=== PATIENT | male | born 1930 | race African-American/Black ===

== ENCOUNTER → 2019-12-11 | Emergency (ER) | payer OTHER ==
[~2019-12-11] VITALS: Ht 172.7 cm; Wt 70.3 kg
[~2019-12-11] MED LIST: SODIUM CHLORIDE 0.9% 1,000 ML IV ONE; cloNIDine HCL 0.1 MG TAB PO ONE
[2019-12-11 09:46] LABS: Basophils # (auto) 0 10 ^3/uL (0-0.2); Basophils % (auto) 0.5 % (0.0-2.0); Eosinophils # (auto) 0.3 10 ^3/uL (0-0.8); Eosinophils % (auto) 2.9 % (0.0-7.0); Hematocrit 42.8 % (41.0-53.0); Hemoglobin 14.5 g/dL (13.5-17.5); Lymphocytes # (auto) 1.4 10 ^3/uL (0.4-5.4); Lymphocytes % (auto) 13.4 % (10.0-50.0); Mean Corpuscular Hemoglobin 32.9 pg (28.0-32.0); Mean Corpuscular Hgb Conc. 33.9 g/dL (32.0-36.0); Mean Corpuscular Volume 96.9 fL (80.0-100.0); Monocytes # (auto) 0.7 10 ^3/uL (0-1.3); Monocytes % (auto) 6.9 % (0.0-12.0); Neutrophils # (auto) 8.2 10 ^3/uL (1.6-8.6); Neutrophils % (auto) 76.3 % (37.0-80.0); Platelet Count (auto) 214 10^3/uL (140-450); Red Blood Cells 4.42 10^6/uL (4.5-5.90); White Blood Cell 10.8 10^3/uL (4.4-10.8)
[2019-12-11 10:03] LABS: Albumin 4.3 g/dL (3.4-5.0); Anion Gap 4 (5-15); Blood Urea Nitrogen 16 mg/dL (7-18); Calcium 9.4 mg/dL (8.5-10.1); Carbon Dioxide 25 mmol/L (21-32); Chloride 110 mmol/L (98-107); Glucose 101 mg/dL (74-106); Potassium 4.4 mmol/L (3.5-5.1); Sodium 139 mmol/L (136-145)
[2019-12-11 10:09] LABS: Alanine Aminotransferase 35 U/L (16-61); Alkaline Phosphatase 91 U/L (45-117); Aspartate Aminotransferase 24 U/L (15-37); BUN/Creatinine Ratio 12.5; Bilirubin, Total 1.1 mg/dL (0.2-1.0); GFR African American 69 mL/min; GFR Non-African American 57 mL/min; Total Protein 8.6 g/dL (6.4-8.2)
[2019-12-11 10:39] LABS: Urine Bacteria FEW /hpf (None Seen); Urine Blood Negative /uL (Negative); Urine Mucus FEW (None Seen); Urine Specific Gravity 1.008 (1.001-1.035); Urine WBC 1 /hpf (0 - 3)
[2019-12-11 11:04] VITALS: BP 202/107
== END | disposition home or self-care (01) ==
LOC: ER 09:05
DX: S00.83XA Contusion of other part of head, initial encounter (principal); S83.91XA Sprain of unspecified site of right knee, initial encounter; I10 Essential (primary) hypertension; E86.0 Dehydration; W18.00XA Striking against unspecified object with subsequent fall, initial encounter; Y93.89 Activity, other specified; Y92.89 Other specified places as the place of occurrence of the external cause; Y99.8 Other external cause status
CPT/HCPCS: 36415; 70450; 70486; 71045; 73562; 80053; 81001; 84484; 85025; 96360; 99285; J7030